=== PATIENT | female | born 1985 | race African-American/Black ===

== ENCOUNTER 2017-07-25 14:31 | Emergency (ER) | payer MEDICAID ==
[~2017-07-25] VITALS: Ht 165.1 cm; Wt 45.0 kg
[~2017-07-25 14:31] MED LIST: CYCL10TA PO; FLAG500T PO; NAPR500 PO
[2017-07-25 14:33] VITALS: BP 118/70; PULSE 77; RESP 16; TEMP 98.6; O2SAT 100
== END 2017-07-25 16:45 | disposition left against medical advice (07) ==
LOC: NED 14:31
DX: Z03.89 Encounter for observation for other suspected diseases and conditions ruled out (principal)
CPT/HCPCS: 99281

== ENCOUNTER 2017-07-25 17:10 | Emergency (ER) | payer MEDICAID ==
[2017-07-25 17:15] VITALS: BP 135/84; PULSE 74; RESP 18; TEMP 98.6; O2SAT 99
== END 2017-07-25 17:20 | disposition left against medical advice (07) ==
LOC: NED 17:10
DX: Z03.89 Encounter for observation for other suspected diseases and conditions ruled out (principal)
CPT/HCPCS: 99281